=== PATIENT | male | born 1980 | race Caucasian/White ===

== ENCOUNTER → 2022-07-25 | Outpatient (CLI) | payer BC ==
[~2022-07-25] MED LIST: CVS1CAP2 PO; LORA-243 PO
== END ==
LOC: M LABSMTC 07:43
PROVIDERS: ATTEND Anesthesiology
DX: Z01.818 Encounter for other preprocedural examination (principal); Z11.52 Encounter for screening for COVID-19

== ENCOUNTER → 2022-07-26 | Day surgery (SDC) | payer BC ==
[~2022-07-26] VITALS: Ht 172.7 cm; Wt 97.7 kg
[~2022-07-26] MED LIST changes: +LIDOCAINE 2% 100MG/5ML SDV (FOR ANES.) As Ordered ONE; +NS 1,000 ML IV ONE; +propofoL 200 MG/20 ML VIAL As Ordered ONE
[2022-07-26 09:15] VITALS: BP 136/87
== END | disposition home or self-care (01) ==
LOC: M OPP 06:39
PROVIDERS: ATTEND Internal Medicine Gastroenterology
DX: K57.32 Diverticulitis of large intestine without perforation or abscess without bleeding (principal); K57.30 Diverticulosis of large intestine without perforation or abscess without bleeding; K64.4 Residual hemorrhoidal skin tags; K64.8 Other hemorrhoids; K52.89 Other specified noninfective gastroenteritis and colitis; D12.6 Benign neoplasm of colon, unspecified; E83.119 Hemochromatosis, unspecified; Z79.899 Other long term (current) drug therapy

== ENCOUNTER → 2023-10-31 | Outpatient (REF) | payer BC ==
[~2023-10-31] MED LIST changes: -LIDOCAINE 2% 100MG/5ML SDV (FOR ANES.) As Ordered ONE; -NS 1,000 ML IV ONE; -propofoL 200 MG/20 ML VIAL As Ordered ONE
== END ==
LOC: M SFHCDERM 08:05
PROVIDERS: ATTEND Nurse Practitioner Family
DX: J38.1 Polyp of vocal cord and larynx (principal)